=== PATIENT | male | born 1940 | race Caucasian/White ===

== ENCOUNTER → 2017-11-21 | Outpatient (CLI) | payer OTHER, MEDICARE ==
[~2017-11-21] MED LIST: LIDOCAINE 1% 300 MG/30 ML SDV ONE
== END ==
LOC: FIMAGING 11:54
PROVIDERS: ATTEND Internal Medicine
PROC: 0JB43ZX Excision of Right Neck Subcutaneous Tissue and Fascia, Percutaneous Approach, Diagnostic (ICD-10-PCS; principal; 2017-11-21)
DX: R22.1 Localized swelling, mass and lump, neck (principal)
CPT/HCPCS: 88184-90; 88185-91

== ENCOUNTER → 2018-04-19 | Outpatient (CLI) | payer OTHER, MEDICARE | LOC: FIMAGING 11:24 | PROVIDERS: ATTEND Internal Medicine | DX: M99.53 Intervertebral disc stenosis of neural canal of lumbar region (principal); M99.54 Intervertebral disc stenosis of neural canal of sacral region; M47.896 Other spondylosis, lumbar region; M51.27 Other intervertebral disc displacement, lumbosacral region ==